=== PATIENT | female | born 1990 | race Caucasian/White ===

== ENCOUNTER → 2023-02-03 12:08 | Outpatient (BNVA) | payer BC, SELFPAY | PROVIDERS: Family Provider Family Medicine; PCP Family Medicine; Visit Provider Psychiatry & Neurology Psychiatry | DX: Z79.899 Other long term (current) drug therapy (principal) | CPT/HCPCS: 80053; 80061; 83036; 84443; 85025 ==

== ENCOUNTER 2023-03-24 20:00 | Outpatient (CLI) | payer BC, SELFPAY | END 2023-03-24 20:01 | disposition home or self-care (01) | LOC: SLEEP 03-25 06:28 | PROVIDERS: Family Provider Family Medicine; PCP Family Medicine; Visit Provider Registered Nurse | DX: G47.10 Hypersomnia, unspecified (principal); G47.00 Insomnia, unspecified; F33.2 Major depressive disorder, recurrent severe without psychotic features; F41.1 Generalized anxiety disorder | CPT/HCPCS: 95810 ==

== ENCOUNTER → 2023-05-19 14:18 | Outpatient (BNVA) | payer BC, SELFPAY | PROVIDERS: Family Provider Family Medicine; PCP Family Medicine; Visit Provider Registered Nurse | DX: Z79.899 Other long term (current) drug therapy (principal); F41.1 Generalized anxiety disorder; G47.00 Insomnia, unspecified | CPT/HCPCS: 82306; 82607; 82746; 83540; 83735 ==

== ENCOUNTER 2024-05-31 08:54 | Outpatient (CLI) | payer MEDICAID, SELFPAY ==
[2024-05-31 09:11] LABS: Basophils % 0.4 %; Eosinophils # 0.2 10^3/uL (0.0-0.8); Hematocrit 44.8 % (36-47); Lymphocytes # 2.2 10^3/uL (0.8-4.8); Mean Corpuscular HGB Conc 31.5 g/dL (30-55); Mean Corpuscular Hemoglobin 25.3 pg (27-33); Mean Corpuscular Volume 80.3 fl (85-98); Mean Platelet Volume 10.3 fL (7.4-10.4); Monocytes # 0.4 10^3/uL (0.2-0.9); Monocytes % 5.3 %; Neutrophils # 5.02 10^3/uL (1.8-7.7); Neutrophils % 62.9 %; Nucleated Red Blood Cells % 0 %; Platelet Count 230 10^3/cmm (157-399); Red Blood Count 5.58 10^6/uL (3.85-5.65); Red Cell Distribution Width 14.2 % (12.1-15.1); White Blood Count 7.97 10^3/uL (3.29-11.43)
[2024-05-31 09:42] LABS: Alanine Aminotransferase 29 U/L (0-33); Alkaline Phosphatase 92 U/L (35-105); Anion Gap 13.3 (5-19); Aspartate Amino Transferase 20 U/L (0-32); Blood Urea Nitrogen 17 mg/dL (6-20); Calcium 9.1 mg/dL (8.5-10.5); Carbon Dioxide 26 mmol/L (22-29); Chloride 103 mmol/L (98-107); Globulin 3.2 g/dL (1.3-4.6); Glomerular Filtration Rate 83.7 mL/min (90-130); Glucose 92 mg/dL (65-115); Homocysteine 10.62 umol/l (0-15); Magnesium 2.1 mg/dL (1.7-2.3); Osmolality Calculated 287 mOsm/kg (285-295); Potassium 4.3 mmol/L (3.5-5.1); Sodium 138 mmol/L (136-145); Total Bilirubin 1.1 mg/dL (0.15-1.2); Total Protein 7.2 g/dL (6.6-8.7)
[2024-05-31 09:57] LABS: 25 Hydroxy Vitamin D 23 ng/mL (30-100); Folate Level 6.2 ng/mL (4.8-37.3); Vitamin B12 394 pg/mL (232-1245)
== END 2024-05-31 08:55 | disposition home or self-care (01) ==
LOC: LAB 08:55
PROVIDERS: Family Provider Family Medicine; PCP Family Medicine; Visit Provider Psychiatry & Neurology Neurology
DX: G47.10 Hypersomnia, unspecified (principal); F51.05 Insomnia due to other mental disorder; F99 Mental disorder, not otherwise specified; Z82.49 Family history of ischemic heart disease and other diseases of the circulatory system; G43.709 Chronic migraine without aura, not intractable, without status migrainosus; H53.8 Other visual disturbances; G44.031 Episodic paroxysmal hemicrania, intractable
CPT/HCPCS: 36415; 80053; 82306; 82607; 82746; 83090; 83735; 83921; 85025; 99203

== ENCOUNTER 2024-06-23 09:40 | Outpatient (CLI) | payer MEDICAID, SELFPAY ==
--- NOTE | 2024-06-23 09:45 | MR_ITS ---
WS: [id number] MRA HEAD TECHNIQUE: Axial 3-D TOF images obtained with axial images and axial, sagittal, and coronal 2-D refor matted images. CLINICAL INFORMATION: G43.709 - Chronic migraine without aura, not intractable,... COMPARISON: None. FINDINGS: Distal vertebral arteries are patent. Basilar artery is patent. Normal vascularity to the SURG RN territo ry bilaterally. Both ICAs are patent at the skull base. Normal vascularity to the TANJA and MCA territories bilaterally . No evidence of high-grade proximal stenosis or aneurysm. No other suspicious findings. MR/MR angio head wo con [id number] IMPRESSION: 1. No evidence of proximal flow-limiting stenosis or aneurysm. 2. Unremarkable intracranial MRA.
== END 2024-06-23 09:41 | disposition home or self-care (01) ==
PROVIDERS: PCP Family Medicine; Visit Provider Psychiatry & Neurology Neurology
DX: G43.709 Chronic migraine without aura, not intractable, without status migrainosus (principal); Z82.49 Family history of ischemic heart disease and other diseases of the circulatory system
CPT/HCPCS: 70544